=== PATIENT | female | born 1945 | race Caucasian/White ===

== ENCOUNTER 2019-04-03 09:34 | Outpatient (CLI) | payer MEDICARE, OTHER ==
[~2019-04-03 09:34] MED LIST: 0.9 % SODIUM CHLORIDE PF 10 ML VIAL IJ ONE; Lidocaine 1% 5ml 10 MG/ML VIAL ONE; methylPREDNISolone ACETATE 40 MG/ML VIAL IM ONE
--- NOTE | 2019-04-09 13:39 | Operative Note ---
PROCEDURE: Lumbar Epidural Steroid Injection (left L4-L5 level), #3 DATE OF PROCEDURE: 04/03/2019 CHIEF COMPLAINT: Low back pain. HISTORY OF PRESENT ILLNESS: Ms. Guerrier returns to [facility] for her third lumbar epidural steroid injection at the left L4-L5 level. The patient has been improving. She rates her pain at 4-5/10 intensity today. She states that she had had a very busy Labor Day weekend and had traveled. She is feeling "wiped out or worn out". She had an episode of hypoglycemia over the weekend which she feels is still debilitating her. We will plan on going ahead with the procedure today. The patient is stable. PHYSICAL EXAMINATION: The patient is awake and alert. Vital signs are stable. Heart is regular in rate and rhythm. Eyes PERRLA. Throat clear. Trachea midline. Lungs have good excursion. Abdomen is soft and nontender. The patient has distal lumbosacral tenderness. PREPROCEDURE DIAGNOSES: 1. Lumbar disc displacement. 2. Diabetes mellitus Type 2. 3. Diabetic peripheral neuropathy. POSTPROCEDURE DIAGNOSES: 1. Lumbar disc displacement. 2. Diabetes mellitus Type 2. 3. Diabetic peripheral neuropathy. PLAN: We will proceed with the planned procedure as mentioned above. DESCRIPTION OF PROCEDURE: Consent: The patients condition and proposed procedure, risks and alternative interventions were discussed with the patient/responsible constitution party, including the risk of bleeding, infection, sensory and/or motor damage, and the potential for efficacy, non-efficacy, and increased pain. It was stressed that the purpose of this injection is for diagnostic and prognostic purposes as well as therapeutic purposes. The patients/responsible partys questions were answered. The patient/responsible constitution party voiced understanding and wished to proceed with the procedure. Pre-Procedure: Name and Date of were verified, confirmed the planned procedure with the patient, reviewed Discharge Instructions and a procedure consent was signed. The patient was brought to Procedure Room 1, a fluoroscopic procedure suite, and was placed in the prone position. The skin overlying the injection site was prepped and draped in an aseptic fashion. Time-Out Procedural Pause: Time-out procedural pause was performed, verifying the correct patient, medical record number, allergies and surgical site. This was performed immediately prior to the beginning of the procedure. All present in the room did agree this was correct. Procedure: The lumbar epidural space was prepped and draped in the usual sterile manner. The T12 through L1 interspace down to the L5-S1 interspace was visualized under fluoroscopy. The left L4-L5 interspace was identified and marked on the skin with a surgical marker. Local anesthetic was then infiltrated at that level via a 25-gauge 1.5-inch needle with 0.5% lidocaine. A 20-gauge Touhy needle was placed. Loss of resistance with Saline via glass syringe was found easily with frequent negative aspirations with imaging in AP, contralateral oblique and lateral projections. A solution containing 5 mL of 0.5% lidocaine MPF with 80 mg of Depo-Medrol was easily infiltrated with frequent negative aspirations. This was done under fluoroscopic guidance throughout the procedure with both AP and lateral imaging as well as contralateral oblique imaging. Following injection of the above material, the needles were removed. The area was cleansed and bandaged and the patient was then brought to the Recovery Room in stable condition with no untoward effects. The patient tolerated the procedure well and appears to be doing much better and much more comfortable at this time. The patients preprocedure pain level was 4-5/10. The patients postprocedure pain level was 0/10. POST-PROCEDURE INSTRUCTIONS: The future plan for this patient will be to get her spinal cord stimulator trial with [employer] setup in the next 2-4 weeks here at [facility]. We will need to speak to the [facility] staff here and/or the staff at [facility] to get this procedure setup. I do not believe any procedures have been done with [employer] here recently. We will see what needs to be done for this. Blade Hernandez MD(Dictated/not signed) /[employer] [id number] pre ] MTDD
== END 2019-04-03 10:55 | disposition home or self-care (01) ==
LOC: OUT 09:34
PROVIDERS: ATTEND Pain Medicine Interventional Pain Medicine
DX: M51.26 Other intervertebral disc displacement, lumbar region (principal); E11.40 Type 2 diabetes mellitus with diabetic neuropathy, unspecified
CPT/HCPCS: 62323; J1030